=== PATIENT | male | born 1980 | race Caucasian/White ===

== ENCOUNTER 2016-09-06 02:24 | Emergency (ER) | payer OTHER ==
[2016-09-06 02:31] VITALS: BP 143/92; PULSE 71; RESP 18; TEMP 97.7
[2016-09-06] MEDS ORDERED: CYCLOBENZAPRINE 10 MG TAB PO STA (02:47)
[2016-09-06] MEDS ORDERED: KETOROLAC 60 MG/2 ML VIAL IM STA (02:47)
--- NOTE | 2016-09-06 02:50 | ED ---
Lower Extremity Injury HPI - General Chief Complaint: Extremity Injury, Lower Stated Complaint: IHS Time Seen by Provider: 09/06/16 02:33 Source: patient, RN notes reviewed Mode of arrival: ambulatory Limitations: no limitations - History of Present Illness Initial Comments: Patient is a 35-year-old male presents to the emergency room for evaluation of right leg pain. Patient states he was pushing a bin at work and felt a pop in his hamstring area. Patient states he has been having pain ever since. Patient states it hurts to walk and extend his leg. Patient denies any numbness or tingling going down his leg. Patient denies back pain. Patient is taking anything for pain. Patient states he is having 9 out of 10 pain. Patient denies any falls or trauma to his leg. Patient denies any other injuries during incident. - Related Data Previous Rx's Medication Instructions Recorded Cyclobenzaprine [Flexeril] 10 mg PO TID PRN #12 tab 09/06/16 Naproxen [Naprosyn] 500 mg PO Q12HR PRN #20 tab 09/06/16 Allergies Allergy/AdvReac Type Severity Reaction Status Date / Time No Known Allergies Allergy Verified 09/06/16 02:31 Review of Systems ROS Statement: Those systems with pertinent positive or pertinent negative responses have been documented in the HPI. ROS Other: All systems not noted in ROS Statement are negative. Past Medical History Past Medical History: No Reported History History of Any Multi-Drug Resistant Organisms: None Reported Past Surgical History: No Surgical Hx Reported Past Psychological History: No Psychological Hx Reported Smoking Status: Never smoker Past Alcohol Use History: None Reported Past Drug Use History: None Reported General Exam - General Exam Comments Initial Comments: Sitting in exam room, no acute distress. Limitations: no limitations General appearance: alert, in no apparent distress Head exam: Present: atraumatic, normocephalic, normal inspection Eye exam: Present: normal appearance ENT exam: Present: normal exam Neck exam: Present: normal inspection Respiratory exam: Absent: respiratory distress Left Upper Leg exam: Present: normal inspection, full ROM, tenderness (Palpating over her posterior upper leg/hamstring area.) Knee exam: Present: full ROM. Absent: tenderness Lower Leg exam: Present: normal inspection, full ROM. Absent: tenderness Neurovascular tendon exam: Present: no vascular compromise. Absent: pulse deficit (2+ dorsal pedal and posterior tibial pulses), abnormal cap refill ( Capillary refill less than 2 seconds) Gait: observed and normal Back exam: Present: normal inspection Neurological exam: Present: alert, oriented X3, CN II-XII intact Psychiatric exam: Present: normal affect, normal mood Skin exam: Present: warm, dry, intact, normal color. Absent: rash Course Vital Signs 09/06/16 02:28 Temperature 97.7 F Pulse Rate 71 Respiratory 18 Rate Blood Pressure 143/92 O2 Sat by Pulse 97 Oximetry Medical Decision Making - Medical Decision Making Patient is a 35-year-old male presents emergency room for evaluation of right hamstring pain. X-ray shows no acute findings. Patient states he is feeling better after medications given. Will send patient home with pain medications and advised him to follow-up with primary care provider symptoms are not improving in 7-10 days. It appears the patient strained his hamstring. Patient states he understands everything that was discussed with him. Return parameters discussed. Case discussed Dr. Jimenez. - Radiology Data Radiology results: report reviewed, image reviewed Disposition Clinical Impression: Strain of right hamstring Disposition: HOME SELF-CARE Condition: Good Instructions: Muscle Strain (ED) Additional Instructions: Take medications as needed. Do not drive or operate heavy machinery while taking Flexeril. Ice on and off for 10-15 minutes at a time for the next 24-48 hours. Please follow up with primary care provider in 7-10 days if symptoms are not improving. If any new symptom arises or symptoms worsen, return to ER as soon as possible. Prescriptions: Naproxen [Naprosyn] 500 mg PO Q12HR PRN #20 tab PRN Reason: Pain Cyclobenzaprine [Flexeril] 10 mg PO TID PRN #12 tab PRN Reason: Pain Referrals: None,Stated [Primary Care Provider] - 1-2 days Time of Disposition: 03:17
--- NOTE | 2016-09-06 03:08 | XR ---
EXAM: XR Right Femur, 2 Views CLINICAL HISTORY: . Pt. states that he was pushing a heavy bin at work and felt a pop; pt. c/o of right femur pain TECHNIQUE: Frontal and lateral views of the right femur. COMPARISON: No relevant prior studies available. FINDINGS: Bones/joints: Unremarkable. No acute fracture. No dislocation. Soft tissues: Unremarkable. IMPRESSION: Normal right femur x-rays.
== END 2016-09-06 03:28 | disposition home or self-care (01) ==
LOC: EC 02:24
DX: S76.111A Strain of right quadriceps muscle, fascia and tendon, initial encounter (principal); X50.0XXA Overexertion from strenuous movement or load, initial encounter; Y93.89 Activity, other specified; Y99.0 Civilian activity done for income or pay; Y92.69 Other specified industrial and construction area as the place of occurrence of the external cause
CPT/HCPCS: 99283; 96372; 73552; J1885

== ENCOUNTER → 2020-09-13 | Outpatient (CLI) | payer OTHER ==
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
== END | disposition home or self-care (01) ==
LOC: RADXRMAIN 13:37
PROVIDERS: ATTEND Emergency Medicine
DX: S80.11XA Contusion of right lower leg, initial encounter (principal); T24.231A Burn of second degree of right lower leg, initial encounter

== ENCOUNTER 2020-12-06 11:10 | Emergency (ER) | payer OTHER ==
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
[2020-12-06 11:42] VITALS: BP 144/101; PULSE 91; RESP 20; TEMP 97.4
[2020-12-06] MEDS ORDERED: HYDROcodone/APAP 5-325MG 1 EACH TAB PO STA (13:06)
--- NOTE | 2020-12-06 14:39 | XR ---
Left hand HISTORY: Trauma and pain 3 views of left hand There is a comminuted fracture at the distal aspect of the third distal phalanx which shows minimal d isplacement. Lucency is also present at the level of the tuft of the fourth digit of the left hand salmeron ggestive of possible prior trauma however there is associated soft tissue swelling as well as hairlin e densities which may extend into the distal interphalangeal joint, possible nondisplaced intra-artic ular fracture. No evident dislocation. Bone mineralization otherwise maintained. IMPRESSION: Fractures as described.
== END 2020-12-06 13:49 | disposition home or self-care (01) ==
LOC: EC 11:10
DX: S67.193A Crushing injury of left middle finger, initial encounter (principal); S67.195A Crushing injury of left ring finger, initial encounter; S62.632A Displaced fracture of distal phalanx of right middle finger, initial encounter for closed fracture; S62.634A Displaced fracture of distal phalanx of right ring finger, initial encounter for closed fracture; W23.0XXA Caught, crushed, jammed, or pinched between moving objects, initial encounter; Y93.89 Activity, other specified; Y99.0 Civilian activity done for income or pay
CPT/HCPCS: 29125; 99283

== ENCOUNTER 2021-02-20 11:38 | Emergency (ER) | payer OTHER ==
[2021-02-20 13:49] VITALS: TEMP 97.1
[2021-02-20] MEDS ORDERED: HYDROcodone/APAP 5-325MG 1 EACH TAB PO STA (14:42)
[2021-02-20] MEDS ORDERED: KETOROLAC 15 MG/ML 1 ML VIAL IM STA (14:42)
[2021-02-20 15:23] VITALS: BP 140/94; PULSE 78; RESP 20
[2021-02-20] MEDS ORDERED: BACITRACIN OINT 1 EACH PACKET TOPICAL ONE (16:05)
[2021-02-20] MEDS ORDERED: ACET/COD 300 MG/30 MG STARTER PACK 6 TAB BTL PO STA (16:05)
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
== END 2021-02-20 16:29 | disposition home or self-care (01) ==
LOC: EC 11:38
DX: T24.231A Burn of second degree of right lower leg, initial encounter (principal); T65.891A Toxic effect of other specified substances, accidental (unintentional), initial encounter; X12.XXXA Contact with other hot fluids, initial encounter; Y99.0 Civilian activity done for income or pay
CPT/HCPCS: 96372; 99283; J1885